=== PATIENT | male | born 1970 | race Caucasian/White ===

== ENCOUNTER 2022-03-06 16:17 | Emergency (ER) | payer OTHER, SELFPAY ==
[2022-03-06] VITALS (20 sets, daily range): BP systolic 137–194; BP diastolic 82–98; PULSE 73–85; RESP 13–26; TEMP 36.8; O2SAT 96–99
--- NOTE | ~2022-03-06 | CT_ITS ---
EXAMINATION: CT cervical spine wo con DATE: 03/06/2022 17:45 INDICATION: Neck pain after fall TECHNIQUE: Computed tomography (CT) of the cervical spine was performed without intravenous contrast. The dose-length product was 548 mGy-cm. Automated exposure control and iterative reconstruction tech [employer] were employed. COMPARISON: None FINDINGS: Straightening of cervical lordosis. Vertebral body heights are maintained. No fracture or t raumatic malalignment. Craniovertebral junction within normal limits. Odontoid process is normal. The re is degenerative disc disease at C5-6. There is mild multilevel uncinate hypertrophy. Lung apices a re normal. No paraspinal soft tissue abnormality. There is intracranial atherosclerosis. IMPRESSION: 1. No acute abnormality of the cervical spine. Reviewed, dictated and finalized at location A.
--- NOTE | ~2022-03-06 | CT_ITS ---
EXAMINATION: CT BRAIN W/O DATE: 03/06/2022 17:45 INDICATION: Right-sided numbness TECHNIQUE: Computed tomography (CT) of the head was performed without intravenous contrast. The dose- length product was 605.33 mGy-cm. Automated exposure control and iterative reconstruction technique w ere employed. COMPARISON: No prior studies for comparison. FINDINGS: Normal brain parenchymal volume for age. Normal martinez-white differentiation. No acute intrac ranial hemorrhage, infarction, mass or mass effect. No ventriculomegaly or midline shift. Midline sagittal images demonstrate a normal corpus callosum, c raniovertebral junction and sella turcica. Basilar cisterns are patent. Paranasal sinuses and mastoids are pneumatized. No depressed skull fractures. IMPRESSION: 1. No acute intracranial abnormality. Reviewed, dictated and finalized at location A.
--- NOTE | 2022-03-06 17:31 | ECG_ITS ---
Measurements Intervals [place] Rate: 77 P: 45 MO: 138 QRS: 39 QRSD: 105 T: 52 QT: 381 QTc: 432 Interpretive Statements SINUS RHYTHM BASELINE ARTIFACT- I, II, III, AVR, AVL, AVF NORMAL ECG Electronically Signed On 03-06-2022 21:26:25 CDT by Robinson Hawkins D.O.
--- NOTE | 2022-03-06 17:34 | ED.NEUROSD ---
HPI - Neuro Symptoms/Deficit General Chief Complaint: Neuro Symptoms/Deficit Stated Complaint: R sided numbness x 1 week Time Seen by Provider: 03/06/22 17:17 Source: patient Mode of arrival: ambulatory Limitations: no limitations History of Present Illness HPI Narrative: This is a 52-year-old male that presents to the emergency department for paresthesias ongoing over the last week. Reports he has had right-sided neck pain that radiates into the right arm. Associated with tingling in the arm. Also reports he has right-sided facial paresthesias. He had a similar episode a couple of years ago. This was relieved with a steroid taper. He was seen at urgent care and sent to the ER for further evaluation. Denies vision changes, vomiting, or focal weaknesss. Related Data Allergies Allergy/AdvReac Type Severity Reaction Status Date / Time amoxicillin Allergy Unknown Hives Verified 04/24/21 14:28 Review of Systems Review of Systems: CONSTITUTIONAL: Denies fever EYES: Denies visual changes GASTROINTESTINAL: Denies vomiting MUSCULOSKELETAL: Reports joint pain, and myalgia. NEUROLOGIC: Reports numbness. Denies weakness. All systems reviewed & are unremarkable except as noted in HPI and below PMFSH Past Medical History Medical History (Updated 03/06/22 @ 20:24 by Shanna Benz PA-C) Essential hypertension MARIANO (generalized anxiety disorder) Family History Family History Father Family history of lymphoma Social History Social History Smoking status: Never smoker Alcohol intake: current Substance use: never Gender identity (if verbalized by the patient): Male Sexual Orientation (if Verbalized by the Patient): Straight or Heterosexual Spiritual care concerns: No Exam Narrative: GENERAL: Well-appearing, well-nourished, and in no acute distress. HEAD: Normocephalic, atraumatic. EYES: PERRLA and EOMI. ENT: Nares clear, no rhinorrhea or epistaxis. Mucous membranes moist. Oropharynx without tonsillar hypertrophy exudate or other lesions. Bilateral TMs pearly amrtinez non-bulging NECK: Supple. No adenopathy or masses. CHEST: Clear to auscultation. No respiratory distress. No wheezes rales or rhonchi HEART: Regular rate and rhythm. No murmur heard. Normal peripheral pulses. EXTREMITIES: Normal range of motion. No edema. Strength equal in bilateral upper and lower extremities (5/5) SKIN: Warm, dry, no rash. NEURO: No focal deficits. Alert and oriented x3. Cranial nerves II through XII grossly intact PSYCH: Normal mood and affect Course Vital Signs Vital signs: Vital Signs Temperature 98.3 F 03/06/22 16:36 Pulse Rate 76 03/06/22 16:36 Respiratory Rate 18 03/06/22 16:36 Blood Pressure 147/82 H 03/06/22 16:36 Pulse Oximetry 97 03/06/22 16:36 Oxygen Delivery Room Air 03/06/22 16:36 Temperature 98.3 F 03/06/22 16:36 Pulse Rate 79 03/06/22 20:40 Respiratory Rate 16 03/06/22 20:40 Blood Pressure 137/82 03/06/22 20:40 Pulse Oximetry 96 03/06/22 20:40 Oxygen Delivery Room Air 03/06/22 16:36 MDM - Neuro Symptoms/Deficit MDM Narrative Medical decision making narrative: Patient presents to the emergency department for right-sided neck pain radiating into the right arm with associated paresthesias. He is afebrile and nontoxic-appearing. Vitals are stable. No focal numbness or weakness noted on exam. CBC without concerning findings. Metabolic panel with elevation in blood glucose, and also mild transaminitis. Hemoglobin A1c was sent. This was elevated to 8. This would be a new diagnosis of diabetes for the patient. CT scan of the cervical spine shows muscle spasm and degenerative disc disease at C5/C6. No acute abnormality of the cervical spine. CT scan of the brain is without acute findings. EKG shows normal sinus rhythm. Patient and family updated on mónica
[2022-03-06 18:00] LABS: Basophils Absolute Auto 0.1 K/mm3 (0.0-0.1); Basophils Percent Auto 0.6 % (0.2-1.2); Eosinophils Absolute Auto 0.3 K/mm3 (0-0.3); Eosinophils Percent Auto 3.5 % (0-4.4); Hematocrit 43.7 % (42.0-52.0); Hemoglobin 14.7 g/dL (14.0-18.0); Immature Granulocyte Absolute 0.07 K/mm3 (0.00-0.031); Immature Granulocyte Percent A 0.8 % (0-0.5); Lymphocytes Absolute Auto 1.63 K/mm3 (0.9-3.2); Lymphocytes Percent Auto 18.9 % (18.3-44.2); Mean Corpuscular HGB Conc 33.6 g/dl (32-36); Mean Corpuscular Hemoglobin 29.6 pg (26-34); Mean Corpuscular Volume 87.9 fl (80-100); Monocytes Absolute Auto 0.6 K/mm3 (0.1-0.6); Monocytes Percent Auto 7.3 % (2.6-8.5); Neutrophils Percent Auto 68.9 % (45.5-73.1); Platelet Count Result 223 k/mm3 (150-375); Red Blood Count 4.97 M/mm3 (4.6-6.20); Red Cell Distribution Width 13.2 % (11.5-14.5); White Blood Count 8.6 K/mm3 (4.5-10.0)
[2022-03-06 18:11] LABS: INR 1.1; Prothrombin Time 13.8 Seconds (11.1-14.7)
[2022-03-06 18:12] LABS: Partial Thromboplastin Time 29.4 SECONDS (22.3-36.8)
[2022-03-06 18:13] LABS: Alanine Aminotransferase 133 U/L (6-50); Albumin Level 4.8 g/dL (3.5-5.1); Alkaline Phosphatase 71 U/L (38-126); Anion Gap 9 mmol/L (8-16); Aspartate Amino Transferase 98 U/L (17-59); Bilirubin,Total 1.7 mg/dL (0.2-1.3); Blood Urea Nitrogen 19 mg/dL (9-20); Calcium 9.3 mg/dL (8.4-10.2); Carbon Dioxide 28 mmol/L (22-30); Chloride 100 mmol/L (98-107); Estimated CRCL calculation 118 ml/min; Estimated Glomerular Filt Rate > 60; Glucose 156 mg/dL (65-110); Magnesium 1.9 mg/dL (1.6-2.3); Potassium 3.9 mmol/L (3.4-5.0); Sodium 137 mmol/L (137-145)
[2022-03-06 18:16] LABS: Glucose Point of Care 163 mg/dl (65-105)
[2022-03-06] MEDS: diazePAM INJ (*CRX) 10 MG/2 ML SYRINGE 5 MG IV PUSH (18:19)
== END 2022-03-06 20:38 | disposition home or self-care (01) ==
PROVIDERS: Physician Assistant; Emergency Provider General Practice; PCP Family Medicine
DX: M54.12 Radiculopathy, cervical region (principal); E11.9 Type 2 diabetes mellitus without complications; R74.01 Elevation of levels of liver transaminase levels; I10 Essential (primary) hypertension; Z79.84 Long term (current) use of oral hypoglycemic drugs
CPT/HCPCS: 36415; 70450; 72125; 80053; 82948; 83036; 83735; 85025; 85610; 85730; 93005; 96365; 96375; 99284; J0131; J1100; J3360